=== PATIENT | male | born 1955 | race Caucasian/White ===

== ENCOUNTER 2025-01-27 11:04 | Inpatient (IN) | payer MEDICARE ==
[~2025-01-27] VITALS: Ht 175.3 cm; Wt 111.8 kg
[2025-01-27 12:34] LABS: BASO # 0.1 10^3/uL (0.0-0.2); BASO % 0.5 % (0.0-1.0); EOS # 0.1 10^3/uL (0.0-0.5); EOS % 0.4 % (0.0-3.0); LYMPH # 1.7 10^3/uL (1.5-5.0); LYMPH % 9.4 % (24.0-44.0); MONO # 1.4 10^3/uL (0.0-0.8); MONO % 7.7 % (2.0-8.0); NEUTROPHILS # 14.9 10^3/uL (1.5-8.5); NEUTROPHILS % 81.3 % (36.0-66.0); PLATELET COUNT, AUTOMATED 400 10^3/uL (150-450)
[2025-01-27] MEDS: NS (Normal Saline) 0.9% 1,000 ML IV ONE ×2 (12:40→15:07)
[2025-01-27] MEDS ORDERED: ISOVUE-370 76% 100 ML VIAL As Ordered ONE (12:42)
[2025-01-27 12:49] LABS: KETONE, URINE AUTO RFX NEGATIVE (NEGATIVE); LEUKOCYTE ESTERASE UR AUTO RFX NEGATIVE (NEGATIVE); MUCUS, URINE RFX LARGE (NEGATIVE); NITRITE, URINE AUTO RFX NEGATIVE (NEGATIVE); RBC, URINE AUTO RFX 1 /HPF (0-3); SQUAM EPITHELIAL CELL UR AURFX 0 /HPF (0-6); WBC, URINE AUTO RFX 1 /HPF (0-3)
[2025-01-27] MEDS: ONDANSETRON 4MG 2ML VIAL IV ONE (13:07)
[2025-01-27] MEDS: MORPHINE 2 MG/ML 1 ML VIAL IV PRN (13:08)
[2025-01-27] MEDS: PIPERACILLIN/TAZOBACTAM SOD 4.5 GM in DEXTROSE 5% (D5W) ADV/MINI-BAG 50 ML IV ONE (14:02)
[2025-01-27] MEDS ORDERED: NALOXONE INJ 0.4 MG/1 ML VIAL IV PRN (14:05)
[2025-01-27] MEDS: MORPHINE 4 MG/ML 1 ML VIAL IV ONE ×2 (14:05→14:55)
[2025-01-27] MEDS ORDERED: [UNRECOGNIZED DRUG - OTHER] (14:22)
[2025-01-27] MEDS ORDERED: PANT40TA29 PO (14:26)
[2025-01-27] MEDS ORDERED: AMLO2.5T3 PO (14:26)
[2025-01-27] MEDS ORDERED: TAMS1CAP17 PO (14:26)
[2025-01-27] MEDS ORDERED: ROSU40TA81 PO (14:26)
[2025-01-27] MEDS ORDERED: IRBE150T27 PO (14:26)
[2025-01-27] MEDS ORDERED: METO1TAB87 PO (14:26)
[2025-01-27] MEDS ORDERED: SIME1CAP4 PO (14:26)
[2025-01-27] MEDS ORDERED: FAMO40TA3 PO (14:26)
[2025-01-27] MEDS ORDERED: VENL150T24 PO (14:26)
[2025-01-27] MEDS ORDERED: HYDR12CA PO (14:26)
[2025-01-27] MEDS ORDERED: HOME MED LIST COMPLETE! XX SCH (14:30)
[2025-01-27 14:42] LABS: ALT/SGPT 19 U/L (7.0-40); AST/SGOT 20 U/L (<34); CALCIUM LEVEL 8.6 MG/DL (8.3-10.6); CARBON DIOXIDE LEVEL 26 MMOL/L (20-31); CHLORIDE LEVEL 99 MMOL/L (98-107); CREATININE FOR GFR 0.65 MG/DL (0.70-1.30); GLOMERULAR FILTRATION RATE > 90.0 (>49); POTASSIUM SERUM 4.7 MMOL/L (3.5-5.1); SODIUM LEVEL 138 MMOL/L (136-145)
[2025-01-27] MEDS ORDERED: ONDANSETRON 4MG 2ML VIAL IV PRN (14:55)
[2025-01-27] MEDS: KETOROLAC 30 MG/ML 1 ML VIAL IV SCH (16:01)
[2025-01-27] MEDS: PERCOCET 5MG/325MG TAB PO PRN ×2 (16:02→22:17)
[2025-01-27] MEDS: LR 1,000 ML IV ONE (16:03)
[2025-01-27] MEDS: NS (Normal Saline) 0.9% 1,000 ML IV SCH (16:14)
[2025-01-27 16:44] VITALS: BP 130/73; TEMP 97.3; O2SAT 96
[2025-01-27] MEDS: PIPERACILLIN/TAZOBACTAM SOD 4.5 GM in DEXTROSE 5% (D5W) ADV/MINI-BAG 50 ML IV SCH (20:21)
[2025-01-28 06:42] LABS: BASO # 0.1 10^3/uL (0.0-0.2); BASO % 0.6 % (0.0-1.0); EOS # 0.1 10^3/uL (0.0-0.5); EOS % 0.6 % (0.0-3.0); LYMPH # 0.6 10^3/uL (1.5-5.0); LYMPH % 4.3 % (24.0-44.0); MONO # 0.8 10^3/uL (0.0-0.8); MONO % 5.4 % (2.0-8.0); NEUTROPHILS # 12.8 10^3/uL (1.5-8.5); NEUTROPHILS % 88.5 % (36.0-66.0); PLATELET COUNT, AUTOMATED 340 10^3/uL (150-450)
[2025-01-28 06:59] LABS: CALCIUM LEVEL 8.6 MG/DL (8.3-10.6); CARBON DIOXIDE LEVEL 26 MMOL/L (20-31); CHLORIDE LEVEL 104 MMOL/L (98-107); CREATININE FOR GFR 0.80 MG/DL (0.70-1.30); GLOMERULAR FILTRATION RATE > 90.0 (>49); POTASSIUM SERUM 4.6 MMOL/L (3.5-5.1); SODIUM LEVEL 141 MMOL/L (136-145)
[2025-01-28] MEDS: TAMSULOSIN 0.4 MG CAP PO SCH (09:57)
[2025-01-28] MEDS: VENLAFAXINE **XR** 75MG CAPSULE PO SCH (09:57)
[2025-01-28] MEDS: PANTOPRAZOLE 40MG VIAL IV SCH (09:58)
[2025-01-28] MEDS: METOPROLOL TART 25 MG TABLET PO SCH (09:58)
[2025-01-28 12:00] VITALS: BP 116/71; TEMP 96.8; O2SAT 98
[2025-01-28 20:11] VITALS: BP 124/71; TEMP 97.3; O2SAT 96
[2025-01-29 04:00] VITALS: BP 136/73; TEMP 97.5; O2SAT 96
[2025-01-29 06:28] LABS: BASO # 0.1 10^3/uL (0.0-0.2); BASO % 0.4 % (0.0-1.0); EOS # 0.1 10^3/uL (0.0-0.5); EOS % 0.9 % (0.0-3.0); LYMPH # 1.2 10^3/uL (1.5-5.0); LYMPH % 10.1 % (24.0-44.0); MONO # 1.0 10^3/uL (0.0-0.8); MONO % 8.2 % (2.0-8.0); NEUTROPHILS # 9.4 10^3/uL (1.5-8.5); NEUTROPHILS % 80.0 % (36.0-66.0); PLATELET COUNT, AUTOMATED 311 10^3/uL (150-450)
[2025-01-29 06:54] LABS: CALCIUM LEVEL 8.2 MG/DL (8.3-10.6); CARBON DIOXIDE LEVEL 27 MMOL/L (20-31); CHLORIDE LEVEL 103 MMOL/L (98-107); CREATININE FOR GFR 0.75 MG/DL (0.70-1.30); GLOMERULAR FILTRATION RATE > 90.0 (>49); POTASSIUM SERUM 4.5 MMOL/L (3.5-5.1); SODIUM LEVEL 141 MMOL/L (136-145)
[2025-01-29 12:00] VITALS: BP 118/74; TEMP 97.4; O2SAT 98
[2025-01-29 20:00] VITALS: BP 139/75; TEMP 97.2; O2SAT 95
[2025-01-30 04:00] VITALS: BP 139/78; TEMP 97.3; O2SAT 96
[2025-01-30 06:18] LABS: BASO # 0.1 10^3/uL (0.0-0.2); BASO % 0.5 % (0.0-1.0); EOS # 0.1 10^3/uL (0.0-0.5); EOS % 0.8 % (0.0-3.0); LYMPH # 1.6 10^3/uL (1.5-5.0); LYMPH % 11.7 % (24.0-44.0); MONO # 1.1 10^3/uL (0.0-0.8); MONO % 8.1 % (2.0-8.0); NEUTROPHILS # 10.7 10^3/uL (1.5-8.5); NEUTROPHILS % 78.3 % (36.0-66.0); PLATELET COUNT, AUTOMATED 327 10^3/uL (150-450)
[2025-01-30 06:50] LABS: CALCIUM LEVEL 8.6 MG/DL (8.3-10.6); CARBON DIOXIDE LEVEL 27 MMOL/L (20-31); CHLORIDE LEVEL 102 MMOL/L (98-107); CREATININE FOR GFR 0.68 MG/DL (0.70-1.30); GLOMERULAR FILTRATION RATE > 90.0 (>49); POTASSIUM SERUM 4.4 MMOL/L (3.5-5.1); SODIUM LEVEL 139 MMOL/L (136-145)
[2025-01-30] MEDS ORDERED: LIDOCAINE 1% MDV 20 ML VIAL As Ordered ONE (11:25)
[2025-01-30] MEDS ORDERED: MIDAZOLAM INJ 2 MG/2 ML VIAL As Ordered ONE (12:08)
[2025-01-30] MEDS ORDERED: NS (Normal Saline) 0.9% 1,000 ML IV SCH (12:15)
[2025-01-30] MEDS: LIDOCAINE 1% MDV 20 ML VIAL SC SCH (12:15)
[2025-01-30] MEDS ORDERED: ISOVUE-300 61% 100 ML VIAL As Ordered ONE (12:16)
[2025-01-30] MEDS: MIDAZOLAM INJ 2 MG/2 ML VIAL IV PRN (12:54)
[2025-01-30] MEDS: SODIUM CHLORIDE 0.9% 1000 ML XX SCH (16:53)
[2025-01-30 19:49] VITALS: BP 166/89; TEMP 97.3; O2SAT 95
[2025-01-30] MEDS: ISOVUE-300 61% 100 ML VIAL IV SCH (20:40)
[2025-01-31 03:47] VITALS: BP 168/89; TEMP 97; O2SAT 94
[2025-01-31 04:00] VITALS: BP 168/90; TEMP 97.3; O2SAT 95
[2025-01-31 06:41] LABS: BASO # 0.1 10^3/uL (0.0-0.2); BASO % 0.7 % (0.0-1.0); EOS # 0.1 10^3/uL (0.0-0.5); EOS % 1.6 % (0.0-3.0); LYMPH # 1.2 10^3/uL (1.5-5.0); LYMPH % 15.5 % (24.0-44.0); MONO # 0.7 10^3/uL (0.0-0.8); MONO % 8.6 % (2.0-8.0); NEUTROPHILS # 5.5 10^3/uL (1.5-8.5); NEUTROPHILS % 72.9 % (36.0-66.0); PLATELET COUNT, AUTOMATED 335 10^3/uL (150-450)
[2025-01-31 07:04] LABS: CALCIUM LEVEL 8.3 MG/DL (8.3-10.6); CARBON DIOXIDE LEVEL 25 MMOL/L (20-31); CHLORIDE LEVEL 104 MMOL/L (98-107); CREATININE FOR GFR 0.65 MG/DL (0.70-1.30); GLOMERULAR FILTRATION RATE > 90.0 (>49); POTASSIUM SERUM 4.5 MMOL/L (3.5-5.1); SODIUM LEVEL 140 MMOL/L (136-145)
[2025-01-31 08:30] VITALS: BP 159/88
[2025-01-31] MEDS ORDERED: AMOX875T2 PO (10:23)
[2025-02-02] MEDS ORDERED: CIPR-249 PO (11:51)
== END 2025-01-31 12:05 | disposition home or self-care (01) | DRG 872 ==
LOC: M ED 11:04 → M ED INP 14:01 → M MS5PR 16:42
PROVIDERS: ADMIT General Practice; ATTEND Family Medicine
PROC: 0W9G30Z Drainage of Peritoneal Cavity with Drainage Device, Percutaneous Approach (ICD-10-PCS; principal; 2025-01-30 12:00)
DX: A41.9 Sepsis, unspecified organism (principal); K57.20 Diverticulitis of large intestine with perforation and abscess without bleeding; I10 Essential (primary) hypertension; E78.00 Pure hypercholesterolemia, unspecified; E66.9 Obesity, unspecified; K21.9 Gastro-esophageal reflux disease without esophagitis; K22.70 Barrett's esophagus without dysplasia; N40.0 Benign prostatic hyperplasia without lower urinary tract symptoms; F41.9 Anxiety disorder, unspecified; Z68.33 Body mass index [BMI] 33.0-33.9, adult; Z79.899 Other long term (current) drug therapy

== ENCOUNTER 2025-03-07 11:38 | Inpatient (IN) | payer MEDICARE ==
[~2025-03-07] VITALS: Ht 172.7 cm; Wt 102.8 kg
[~2025-03-07 11:38] MED LIST: AMLO2.5T3 PO; AMOX875T2 PO; CIPR-249 PO; FAMO40TA3 PO; HYDR12.510 PO; IRBE150T27 PO; METO1TAB87 PO; PANT40TA29 PO; ROSU40TA81 PO; SIME1CAP4 PO; TAMS1CAP17 PO; VENL150T24 PO; [UNRECOGNIZED DRUG - OTHER]
[2025-03-07 12:23] LABS: KETONE, URINE AUTO RFX NEGATIVE (NEGATIVE); LEUKOCYTE ESTERASE UR AUTO RFX NEGATIVE (NEGATIVE); MUCUS, URINE RFX SMALL (NEGATIVE); NITRITE, URINE AUTO RFX NEGATIVE (NEGATIVE); RBC, URINE AUTO RFX 0 /HPF (0-3); SQUAM EPITHELIAL CELL UR AURFX 0 /HPF (0-6); WBC, URINE AUTO RFX 1 /HPF (0-3)
[2025-03-07 12:37] LABS: BASO # 0.1 10^3/uL (0.0-0.2); BASO % 0.6 % (0.0-1.0); EOS # 0.1 10^3/uL (0.0-0.5); EOS % 0.9 % (0.0-3.0); LYMPH # 1.7 10^3/uL (1.5-5.0); LYMPH % 17.9 % (24.0-44.0); MONO # 0.9 10^3/uL (0.0-0.8); MONO % 9.6 % (2.0-8.0); NEUTROPHILS # 6.7 10^3/uL (1.5-8.5); NEUTROPHILS % 70.5 % (36.0-66.0); PLATELET COUNT, AUTOMATED 271 10^3/uL (150-450)
[2025-03-07] MEDS ORDERED: METR-369 PO (12:51)
[2025-03-07] MEDS ORDERED: CIPR500T39 PO (12:51)
[2025-03-07 12:59] LABS: ALT/SGPT 18.0 U/L (7.0-40); AST/SGOT 19.0 U/L (<34)
[2025-03-07] MEDS ORDERED: ISOVUE-370 76% 100 ML VIAL As Ordered ONE (13:28)
[2025-03-07] MEDS ORDERED: VITA500054 PO (14:43)
[2025-03-07] MEDS ORDERED: CYAN-1 PO (14:43)
[2025-03-07] MEDS ORDERED: HOME MED LIST COMPLETE! XX SCH (14:45)
[2025-03-07] MEDS: NS (Normal Saline) 0.9% 1,000 ML IV ONE (15:09)
[2025-03-07] MEDS: LevoFLOXacin IV 750 MG in IV 1 EA IV ONE (15:09)
[2025-03-07 17:31] LABS: C REACTIVE PROTEIN QUANTITATIV 3.32 MG/DL (<1.0)
[2025-03-07] MEDS: FAMOTIDINE 20 MG TAB PO SCH (18:08)
[2025-03-07 22:14] VITALS: BP 139/76; TEMP 97.3; O2SAT 97
[2025-03-07] MEDS: METOPROLOL TART 25 MG TABLET PO SCH (22:16)
[2025-03-07] MEDS: ROSUVASTATIN 10 MG TAB PO SCH (22:16)
[2025-03-07] MEDS: TAMSULOSIN 0.4 MG CAP PO SCH (22:17)
[2025-03-07] MEDS: metroNIDAZOLE 500 MG in IV 1 EA IV SCH (22:17)
[2025-03-08 05:07] VITALS: BP 139/75; TEMP 97; O2SAT 98
[2025-03-08 07:33] LABS: C REACTIVE PROTEIN QUANTITATIV 3.6 MG/DL (<1.0)
[2025-03-08 07:42] LABS: KETONE, URINE AUTO RFX NEGATIVE (NEGATIVE); LEUKOCYTE ESTERASE UR AUTO RFX NEGATIVE (NEGATIVE); NITRITE, URINE AUTO RFX NEGATIVE (NEGATIVE); RBC, URINE AUTO RFX 0 /HPF (0-3); SQUAM EPITHELIAL CELL UR AURFX 0 /HPF (0-6); WBC, URINE AUTO RFX 0 /HPF (0-3)
[2025-03-08] MEDS: ENOXAPARIN 40 MG/0.4 ML SYRINGE (J1650 PER 10MG) SC SCH (08:38)
[2025-03-08] MEDS: IRBESARTAN 150 MG TAB PO SCH (08:39)
[2025-03-08] MEDS: VENLAFAXINE **XR** 75MG CAPSULE PO SCH (08:40)
[2025-03-08] MEDS: PANTOPRAZOLE 40MG TAB PO SCH (08:50)
[2025-03-08] MEDS: LIDOCAINE 1% MDV 20 ML VIAL SC ONE (13:40)
[2025-03-08] MEDS ORDERED: LIDOCAINE 1% MDV 20 ML VIAL As Ordered ONE (13:47)
[2025-03-08 14:00] VITALS: BP 128/78; TEMP 97.2; O2SAT 96
[2025-03-08] MEDS ORDERED: PERCOCET 5MG/325MG TAB PO PRN (18:00)
[2025-03-08] MEDS: PERCOCET 5MG/325MG TAB PO PRN (18:19)
[2025-03-08 20:41] VITALS: BP 138/75; TEMP 97; O2SAT 96
[2025-03-08] MEDS: LevoFLOXacin IV 750 MG in IV 1 EA IV SCH (20:43)
[2025-03-09 05:17] VITALS: BP 119/71; TEMP 95.4; O2SAT 98
[2025-03-09 06:51] LABS: BASO # 0.0 10^3/uL (0.0-0.2); BASO % 0.6 % (0.0-1.0); EOS # 0.1 10^3/uL (0.0-0.5); EOS % 1.4 % (0.0-3.0); LYMPH # 1.5 10^3/uL (1.5-5.0); LYMPH % 23.0 % (24.0-44.0); MONO # 0.8 10^3/uL (0.0-0.8); MONO % 12.7 % (2.0-8.0); NEUTROPHILS # 3.9 10^3/uL (1.5-8.5); NEUTROPHILS % 61.7 % (36.0-66.0); PLATELET COUNT, AUTOMATED 273 10^3/uL (150-450)
[2025-03-09] MEDS: NAPROXEN 250 MG TAB PO PRN (08:27)
[2025-03-09 14:38] VITALS: BP 122/72; TEMP 97; O2SAT 98
[2025-03-09 20:45] VITALS: BP 135/81; TEMP 97; O2SAT 96
[2025-03-09 20:50] VITALS: BP 135/81
[2025-03-09] MEDS: LORazepam 1 MG TAB PO SCH (20:50)
[2025-03-10 05:55] VITALS: BP 124/77; TEMP 97.2; O2SAT 96
[2025-03-10 07:16] LABS: PLATELET COUNT, AUTOMATED 282 10^3/uL (150-450)
[2025-03-10] MEDS ORDERED: METR-265 PO (10:40)
[2025-03-10] MEDS ORDERED: LEVO1TAB40 PO (10:40)
[2025-03-10 10:58] LABS: CALCIUM LEVEL 9.0 MG/DL (8.3-10.6); CARBON DIOXIDE LEVEL 31 MMOL/L (20-31); CHLORIDE LEVEL 105 MMOL/L (98-107); CREATININE FOR GFR 0.76 MG/DL (0.70-1.30); GLOMERULAR FILTRATION RATE > 90.0 (>49); POTASSIUM SERUM 4.6 MMOL/L (3.5-5.1); SODIUM LEVEL 143 MMOL/L (136-145)
[2025-03-10 11:16] LABS: BASO # 0.0 10^3/uL (0.0-0.2); BASO % 0.5 % (0.0-1.0); EOS # 0.1 10^3/uL (0.0-0.5); EOS % 1.1 % (0.0-3.0); LYMPH # 1.1 10^3/uL (1.5-5.0); LYMPH % 15.3 % (24.0-44.0); MONO # 0.6 10^3/uL (0.0-0.8); MONO % 7.4 % (2.0-8.0); NEUTROPHILS # 5.6 10^3/uL (1.5-8.5); NEUTROPHILS % 75.3 % (36.0-66.0); PLATELET COUNT, AUTOMATED 292 10^3/uL (150-450)
== END 2025-03-10 13:05 | disposition home or self-care (01) | DRG 392 ==
LOC: M ED 11:38 → M ED INP 15:00 → M MS5PR 16:15
PROVIDERS: ADMIT Internal Medicine; ATTEND Internal Medicine
PROC: 0W9G30Z Drainage of Peritoneal Cavity with Drainage Device, Percutaneous Approach (ICD-10-PCS; principal; 2025-03-08 13:38)
DX: K57.20 Diverticulitis of large intestine with perforation and abscess without bleeding (principal); I10 Essential (primary) hypertension; N40.0 Benign prostatic hyperplasia without lower urinary tract symptoms; K21.9 Gastro-esophageal reflux disease without esophagitis; K22.70 Barrett's esophagus without dysplasia; E78.5 Hyperlipidemia, unspecified; F39 Unspecified mood [affective] disorder; Z79.899 Other long term (current) drug therapy

== ENCOUNTER → 2025-03-20 | Outpatient (CLI) | payer MEDICARE ==
[~2025-03-20] MED LIST changes: +CIPR500T39 PO; +CYAN-1 PO; +ISOVUE-370 76% 100 ML VIAL As Ordered ONE; +LEVO1TAB40 PO; +METR-265 PO; +METR-369 PO; +VITA500054 PO
== END ==
LOC: M RAD 14:08
PROVIDERS: ATTEND Registered Nurse School
DX: K57.20 Diverticulitis of large intestine with perforation and abscess without bleeding (principal)
CPT/HCPCS: 74177; Q9967